=== PATIENT | female | born 1965 | race Caucasian/White ===

== ENCOUNTER 2017-10-24 13:01 | Emergency (ER) | payer SELFPAY ==
[2017-10-24] MEDS: HYDROcodone/APAP 5/325MG 1 TAB TABLET PO (13:35)
[2017-10-24] MEDS: DIPHTH,PERTUSS(ACELL),TET TOX 0.5 ML DISP.SYRIN. VAX IM (13:54)
== END 2017-10-24 13:59 | disposition home or self-care (01) ==
LOC: ER 13:01
DX: S91.332A Puncture wound without foreign body, left foot, initial encounter (principal); Z79.891 Long term (current) use of opiate analgesic; Z79.899 Other long term (current) drug therapy; W45.0XXA Nail entering through skin, initial encounter; Y93.89 Activity, other specified; Y92.89 Other specified places as the place of occurrence of the external cause; Y99.8 Other external cause status
CPT/HCPCS: 90471; 90715; 99283

== ENCOUNTER → 2020-07-19 | Outpatient (CLI) | payer OTHER ==
[2017-10-24 13:15] VITALS: BP 132/85
[~2020-07-19] MED LIST: CIPR500T94 PO; HYDR-3164 PO
--- NOTE | 2020-07-19 12:54 | RAD ---
EXAM: XR KNEE_LT 1-2 VIEWS, XR LUMBAR SPINE 2-3V 07/19/2020 10:30 AM CLINICAL INDICATION: Low back pain, left knee pain, disability determination COMPARISON: CT abdomen pelvis 07/29/2013 TECHNIQUE: AP and lateral views of the lumbar spine. AP and lateral views of the left knee. FINDINGS: Lumbar spine: There are 5 nonrib-bearing lumbar vertebral bodies. No acute fracture. There is a 6 mm anterolisthesis of L4 on L5. Mild disc space narrowing, greatest at L4-L5 and L5-S1. Mild degenerative end plate changes with tiny marginal osteophytes. There is facet arthrosis in the lower lumbar spine. Cholecystectomy clips are noted. Left knee: There is moderate to severe medial compartment narrowing with subchondral sclerosis and la rge subchondral cysts. Small tricompartmental osteophytes. Lateral compartment spaces maintained. Tra ce joint effusion. IMPRESSION: 1. Mild multilevel degenerative disc disease, greatest in the lower lumbar spine. 6 mm anterolisthesi s of L4 on L5. Lower lumbar facet arthrosis. 2. 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 Electronically signed by: Paige Fields MD (07/19/2020 12:51 PM) [id number]
== END ==
LOC: RAD 09:37
PROVIDERS: ATTEND Surgery
DX: M47.816 Spondylosis without myelopathy or radiculopathy, lumbar region (principal); M43.16 Spondylolisthesis, lumbar region; M51.36 Other intervertebral disc degeneration, lumbar region; M17.12 Unilateral primary osteoarthritis, left knee
CPT/HCPCS: 72100; 73560